=== PATIENT | female | born 1965 | race Caucasian/White ===

== ENCOUNTER 2016-08-12 20:31 | Emergency (ER) | payer BC ==
[~2016-08-12 20:31] MED LIST: BLOOD PRESSURE MED?; VICODIN 5/500 T1 TAB PO
== END 2016-08-12 21:17 | disposition home or self-care (01) ==
LOC: CFTX 20:31
DX: H66.002 Acute suppurative otitis media without spontaneous rupture of ear drum, left ear (principal); Z90.49 Acquired absence of other specified parts of digestive tract
CPT/HCPCS: 87651; 99282

== ENCOUNTER → 2016-11-26 | Outpatient (CLI) | payer BC ==
--- NOTE | ~2016-11-26 | MY29 ---
[facility] A Service of [facility] RADIOLOGY TEXT RESULTS PATIENT: PING HINTON LOCATION: [facility] : [birth year] UNIT #: [id number] AGE: [address]: Erum Soni MD SEX: F ORDER DR: [id number] [place], [place] [address] [id number] O MR#: [id number] Acc #: [id number] NAME: PING HINTON. : 1965 SEX: F STUDY DATE/TIME: 11/26/2016 10:30 UNIT: [facility] ROOM: STUDY DESCRIPTION: MY [facility] SCREENING W/ CAD BILAT Attending Physician: Erum Soni M.D. Ordering Physician: Erum Soni M.D. Primary Care Physician: Erum Soni M.D. MEDICAL IMAGING REPORT This report is preliminary unless electronic signature is present EXAM Digital screening mammogram with CAD INDICATIONS Routine screening. TECHNIQUE Bilateral CC and MLO views obtained on a digital mammography unit. FDA-approved CAD device utilized. COMPARISON STUDIES 09/23/2015. FINDINGS Scattered fibroglandular density. No dominant mass or suspicious calcification. IMPRESSION Negative screening mammogram, screen interval 1 year suggested. BIRADS: 1 Negative. Patients over the age of 40 are entered into a reminder system with target due date for the next mammogram. A result letter will also be sent to the patient. Dictated by... Javier Zimmer M.D. THIS IS AN ELECTRONICALLY VERIFIED REPORT Javier Zimmer M.D. at 11/27/2016 7:12 AM [facility] A Service [facility] RADIOLOGY TEXT RESULTS PATIENT: PING HINTON LOCATION: [facility] #: [id number] : [birth year] UNIT #: [id number] AGE: [address]: Erum Soni MD SEX: F ORDER DR: LISBETH/dallin TD: 11/26/2016 19:16 JOB #: [id number] MEDICAL IMAGING REPORT Page 1 of 1 COPY
--- NOTE | ~2016-11-26 | BD1 ---
[facility] A Service of [facility] RADIOLOGY TEXT RESULTS PATIENT: PING HINTON LOCATION: [facility] : 69 UNIT #: [id number] AGE: [address]: Erum Soni MD SEX: F ORDER DR: [id number] [facility] [address] [facility] [place], [place] [address] [id number] O MR#: [id number] Acc #: [id number] NAME: PING HINTON : 1965 SEX: F STUDY DATE/TIME: 11/26/2016 10:17 UNIT: [facility] ROOM: STUDY DESCRIPTION: BD Dexa Bone Dens 1+ Site Attending Physician: Erum Soni M.D. Ordering Physician: Erum Soni M.D. Primary Care Physician: Erum Soni M.D. MEDICAL IMAGING REPORT This report is preliminary unless electronic signature is present EXAM Bone densitometry study INDICATION Osteoporosis screening. COMPARISON 04/01/2013. FINDINGS The study was done on a Hologic machine. The L1-L4 BMD is .935 g/cm2 for a T-score of -1.0 and a Z-score of -0.3. Left hip total BMD is 0.941 g/cm2 for a T-score of 0.0 and a Z-score of 0.4. On the old study, the lumbar spine T-score is -1.2. The neck T-score is -0.4. IMPRESSION Values on today's bone density study of the lumbar spine and left hip show a T-score of -1.0 in the hip and a T-score of -1.0 in the lumbar spine which is at the lower limits of normal. The T-score in the left hip is 0.4 which is normal. These are both slightly improved as compared with the prior study from 2012. STAT * RESULT Dictated by... Williams Martin M.D. THIS IS AN ELECTRONICALLY VERIFIED REPORT [facility] A Service of [facility] RADIOLOGY TEXT RESULTS PATIENT: PING HINTON [id number] : [birth year] UNIT #: [id number] AGE: [address]: Erum Soni MD SEX: F ORDER DR: Williams Martin M.D. at 12/06/2016 7:37 AM [place]/brenda TD: 12/06/2016 07:12 JOB #: [id number] MEDICAL IMAGING REPORT Page 1 of 1 COPY
== END | disposition home or self-care (01) ==
LOC: CWCC 10:00
DX: Z12.31 Encounter for screening mammogram for malignant neoplasm of breast (principal); M85.80 Other specified disorders of bone density and structure, unspecified site
CPT/HCPCS: 77080; G0202